=== PATIENT | female | born 1935 | race Caucasian/White ===

== ENCOUNTER 2017-02-21 05:57 | Inpatient (IN) ==
--- NOTE | 2017-02-21 08:21 | CONSULTATION ---
DATE OF CONSULTATION: 02/21/2017 CHIEF COMPLAINT: Hip pain. HISTORY OF PRESENT ILLNESS: Ms. Mahoney is an 81-year-old female who, unfortunately, fell last night when she was going to the bathroom and fell right on her left hip. She presented to [facility] for evaluation. I x-rayed her and saw a hip fracture and then sent her over here for hospitalist admission and surgery. Most of her pain is in the left hip. She was unable to bear weight after the fall, and she denies any loss of consciousness, and she denies any pain anywhere else other than the left hip. PAST MEDICAL HISTORY: Hypertension, diabetes. PAST SURGICAL HISTORY: What sounds like a cervical ablation in the past for cancer and that seemed to resolve the problem. She has not had any problems with that since then. MEDICATIONS: Atorvastatin, aspirin, metformin, hydrochlorothiazide. ALLERGIES: No known drug allergies. SOCIAL HISTORY: She denies any alcohol or tobacco use. FAMILY HISTORY: Negative for any anesthesia-related problems. REVIEW OF SYSTEMS: Positive for this left hip pain. All other systems are essentially negative. PHYSICAL EXAMINATION: Vital signs: Temperature 98.1, pulse 73, blood pressure 157/42, O2 sat 97%. General: Well-developed, well-nourished female in no acute distress. Head/neck: Normocephalic, atraumatic. Lungs: Respirations nonlabored. Cardiovascular: Regular rate. Abdomen: Nondistended. Extremities: Left lower extremity exam shows tenderness to palpation of the left hip, no tenderness to palpation of the knee or ankle. She has good dorsiflexion and plantar flexion of the foot and ankle, 2+ DP pulse, and good sensation to light touch to the toes. No tenderness on palpation of the right lower extremity or bilateral upper extremities. IMAGING: Hip film from outside facility was reviewed, which shows a displaced femoral neck fracture. PLAN: I discussed with Ms. Mahoney and her daughter about surgical intervention, which would be a left hip hemiarthroplasty, went over with them the risks, benefits, and potential complications. Risks include but are not limited to infection, wound healing problems, damage to nerves, arteries, veins, numbness, fracture, implant failure or problems, DVT, and anesthesia-related risks. After discussing these with the patient and her daughter, they both expressed understanding and wished to proceed. She is n.p.o. now. If the hospitalist is okay with her going today, then I will plan on getting this done today. She is n.p.o. until further notice. cc: MD José Miguel Cardenas MD
[2017-02-21] MEDS ORDERED: MORPHINE IV ONE (08:40)
[2017-02-21] MEDS ORDERED: MORPHINE IV PRN ×3 (08:40→15:11)
[2017-02-21] MEDS ORDERED: TYLENOL PO PRN (08:57)
[2017-02-21] MEDS ORDERED: ZOFRAN IV PRN ×2 (08:57→15:11)
--- NOTE | 2017-02-21 08:57 | HISTORY AND PHYSICAL ---
HISTORY OF PRESENT ILLNESS: This is an 81-year-old. She presented last night. She was going to the bathroom, fell, and struck her left hip. Presented to [facility]. Her evaluation and x- ray showed a hip fracture. Sent her here for admission. PAST MEDICAL HISTORY: 1. Hypertension. 2. Diabetes mellitus type 2. SURGICAL HISTORY: 1. She has had a right carotid endarterectomy. 2. Hysterectomy for early cervical cancer, I believe. 3. She had her right collarbone broken but I do not think there was any surgery involved. MEDICATIONS: Atorvastatin, aspirin, metformin, hydrochlorothiazide. ALLERGIES: No known drug allergies. SOCIAL HISTORY: Denies alcohol or tobacco use. FAMILY HISTORY: Negative for anesthesia related problems, or heart, lung, or kidney issues. REVIEW OF SYSTEMS: General: No weight gain or loss. No fever or chills. HEENT: Unremarkable. Respiratory: No increased work of breathing or dyspnea. Cardiovascular: No chest pain or tachy palpitation. GI/: No significant history other than status post hysterectomy. PHYSICAL EXAMINATION: GENERAL: Awake and alert. She is in pain. VITAL SIGNS: Temperature 97.9 degrees, pulse 73, respirations 20, blood pressure 157/51. HEENT: Pupils are equal and round. CVP less than 6 cm. LUNGS: Clear in all lung adamson. CARDIOVASCULAR EXAMINATION: Regular rhythm and rate without murmur or S3. ABDOMEN: Soft. SKIN: Warm and dry. DIAGNOSTIC DATA: X-ray by report, a left hip fracture. ASSESSMENT AND PLAN: 1. Left hip fracture, for surgery. Surgical intervention this morning, I believe, per Dr. Nelson. Probably do a left hip hemiarthroplasty. We will give her some morphine for pain. She seemed to tolerate that in the emergency room. 2. Hypertension. Aware. 3. Diabetes mellitus type 2. We will check patterned sugars. 4. Reviewed her home medications. She is on aspirin 325 mg a day, Plavix 75 mg a day, B12, folic acid tablet 1000 mg daily, Lozol 1.25 mg daily, magnesium oxygen 400 mg a day, Glucophage 500 mg twice a day, omeprazole 20 mg a day, potassium chloride 10 mEq daily, simvastatin 40 mg at bedtime. cc: José Miguel Deshpande MD
[2017-02-21] MEDS: FOLTX PO SCH ×2 (09:16→16:31)
[2017-02-21] MEDS: GLUCOPHAGE PO SCH ×2 (09:16→16:20)
[2017-02-21] MEDS: KLOR-CON PO SCH ×2 (09:17→16:31)
[2017-02-21] MEDS: LOZOL PO SCH ×2 (09:17→16:31)
[2017-02-21] MEDS: MAG-OX PO SCH ×2 (09:17→16:31)
[2017-02-21 10:45] LABS: CALCIUM 9.6 mg/dL (8.8-10.2); POTASSIUM 3.6 mmol/L (3.5-5.1)
[2017-02-21 10:55] LABS: BASO% 0.1 % (0.0-0.8); EOS# 0.01 X1000 (0.0-0.7); EOS% 0.1 % (0.0-10.0); HEMATOCRIT 33.3 % (37.0-47.0); HEMOGLOBIN 11.8 g/dL (12.0-16.0); IMM GRAN# 0.03 X1000 (0.0-0.04); IMM GRAN% 0.2 % (0.0-0.5); LYMPH# 0.95 X1000 (1.2-3.4); LYMPH% 6.3 % (20.5-51.1); MANUAL DIFF NEEDED? NO; MCH 30.5 PG (27-31); MCHC 35.4 g/dL (33-37); MONO# 0.56 X1000 (0.11-0.59); MONO% 3.7 % (1.7-9.3); MPV 9.5 FL (7.4-10.4); NEUT% 89.6 % (42.2-75.2); PLT 347 X1000 (130-400); RBC 3.87 XMIL (4.2-5.4)
[2017-02-21] MEDS ORDERED: KEFZOL 1 GM/D5W 1 GM/50 ML IVPB ONE (13:06)
[2017-02-21] MEDS ORDERED: DIPRIVAN 1% ONE (13:16)
[2017-02-21] MEDS ORDERED: XYLOCAINE-MPF 2% ONE (13:26)
[2017-02-21] MEDS ORDERED: ZOFRAN ONE (13:26)
[2017-02-21] MEDS ORDERED: OFIRMEV 1000 MG/ISOTONIC SOLN 1,000 MG/100 ML BOTTLE ONE (13:26)
[2017-02-21] MEDS ORDERED: MORPHINE ONE (13:39)
[2017-02-21] MEDS ORDERED: HALDOL IV PRN (15:11)
[2017-02-21] MEDS ORDERED: MILK OF MAGNESIA PO PRN (15:11)
[2017-02-21] MEDS ORDERED: OXY IR PO PRN (15:11)
[2017-02-21] MEDS ORDERED: NS 1,000 ML ONE (15:21)
--- NOTE | 2017-02-21 15:34 | OPERATIVE NOTE ---
PROCEDURE DATE: 02/21/2017 PREOPERATIVE DIAGNOSES: Left femoral neck fracture, displaced. POSTOPERATIVE DIAGNOSIS: Left femoral neck fracture, displaced. PROCEDURE: Left hip hemiarthroplasty. SURGEON: Dr. Vincent Nelson. TRACTOR MECHANIC HELPER: None. ANESTHESIA: General with LMA. ESTIMATED BLOOD LOSS: About 200 mL. IMPLANTS: DePuy Corail stem size 11 with a 47 head. DISPOSITION: PACU hemodynamically stable. INDICATION FOR PROCEDURE: Ms. Mahoney is an 81-year-old female, who fell during the middle of the night last night right onto his left hip. She presented to the emergency department with hip pain. She was diagnosed with hip fracture and admitted per the hospitalist service. She was worked up, was made n.p.o. I discussed with her operative intervention. I went over with her the procedure, risks, benefits, potential complications, and she expressed understanding and wished to proceed. DESCRIPTION OF PROCEDURE: Ms. Mahoney was identified in the holding area. The left hip was marked as correct surgical site. She was then wheeled to the operating room, placed supine on the operating table. All bony prominences well padded. She was induced under general anesthesia. LMA was placed. She was then flipped to the right lateral decubitus position. Axillary roll was placed. Pegboard was used to hold her in place and all bony prominences were again checked and well padded. Left lower extremity was then prepped with ChloraPrep and draped in normal sterile fashion. Surgical pause was performed. We identified the correct patient, correct side, and the correct procedure. Preop antibiotics were given. We started with a posterior approach to the hip and dissection was carried down. I went through the deep fascia layer. Found our short external rotators. Found our piriformis. I was able to release that off and tag it. I then came down on the capsule. I then T'd the capsule and exposed the fracture. I then made a fresh neck cut there and got that bone out and then used a corkscrew and got the head out. Sized it to a size 47. I trialed that in the acetabulum and that fit really well. We then irrigated everything copiously with normal saline. I got any loose bone shards out. The neck cut looked really good at this point. I then used a Zhenai cutter and lateralized where my starting point would be. Canal finer and then used broaching up to a size 11. A size 11 actually fit really well. Calcar planed it down. We trialed the 11 and it actually fit really well. I then irrigated everything copiously with normal saline. Put a Corail stem size 11 in. Had good anteversion of it and then put the head on and we were able to reduce that down and it actually fit really well. Took it through range of motion. Everything was very stable in both extension and flexion, internal and external rotation. I then closed the capsule with 0 Vicryl, 0 Vicryl closed the piriformis back down to the trochanter, and then 0 Vicryl for the deep fascia, 2-0 Vicryl for the subcutaneous, and ruth on the skin. Adaptic, 4x4s, and island dressing was then placed. The patient was then wheeled from general anesthesia, moved to her own bed and taken to the PACU in stable condition. Postoperatively, patient will be weight bear as tolerated left lower extremity and I will see her in the morning. cc: MD José Miguel Cardenas MD
[2017-02-21] MEDS: NS 1,000 ML IV SCH (15:40)
[2017-02-21] MEDS: TYLENOL PO SCH ×2 (16:29→23:22)
--- NOTE | 2017-02-21 16:55 | Diag Imaging Result Doc PS360 ---
EXAM: PELVIS INDICATION: postop TECHNIQUE: One view COMPARISON: None. FINDINGS: There has been a recent left hip arthroplasty. The arthroplasty hardware is in expected position. There is no evidence of periprosthetic fracture. Skin ruth are identified lateral to the hip and there is postsurgical subcutaneous gas. IMPRESSION: Satisfactory postoperative left hip. Electronically signed by Martinez Suresh 02/21/2017 4:52 PM
[2017-02-21] MEDS: COLACE PO SCH (20:09)
[2017-02-21] MEDS: PERIDEX MT SCH (20:10)
[2017-02-21] MEDS: ZOCOR PO SCH (22:16)
[2017-02-21] MEDS: KEFZOL 1 GM/D5W 1 GM/50 ML IVPB IV SCH (23:22)
[2017-02-22] MEDS: NS 1,000 ML IV SCH (04:27)
[2017-02-22] MEDS: LOVENOX SUBQ SCH (05:40)
[2017-02-22] MEDS: KEFZOL 1 GM/D5W 1 GM/50 ML IVPB IV SCH ×2 (05:40→14:18)
[2017-02-22 05:55] LABS: MANUAL DIFF NEEDED? NO
[2017-02-22 06:04] LABS: BASO% 0.2 % (0.0-0.8); EOS# 0.04 X1000 (0.0-0.7); EOS% 0.4 % (0.0-10.0); HEMATOCRIT 27.1 % (37.0-47.0); HEMOGLOBIN 9.2 g/dL (12.0-16.0); LYMPH# 1.33 X1000 (1.2-3.4); LYMPH% 14.3 % (20.5-51.1); MCH 30.2 PG (27-31); MCHC 33.9 g/dL (33-37); MCV 88.9 FL (81-99); MONO% 4.3 % (1.7-9.3); MPV 9.6 FL (7.4-10.4); NEUT% 80.8 % (42.2-75.2); PLT 280 X1000 (130-400); RBC 3.05 XMIL (4.2-5.4)
[2017-02-22 06:24] LABS: ALBUMIN 3.7 g/dL (3.5-5.0); CALCIUM 7.9 mg/dL (8.8-10.2); MAGNESIUM 1.3 mg/dL (1.5-2.7); POTASSIUM 3.4 mmol/L (3.5-5.1); TOTAL BILIRUBIN 0.32 mg/dL (0.20-1.00); TOTAL PROTEIN 5.6 g/dL (6.3-8.3)
[2017-02-22] MEDS: TYLENOL PO SCH ×4 (07:08→22:27)
[2017-02-22] MEDS: PRILOSEC PO SCH (07:08)
--- NOTE | 2017-02-22 08:17 | PROGRESS NOTE ---
DATE: 02/22/2017 SUBJECTIVE: Ms. Mahoney is lying in bed this morning. She feels better after surgery and is not hurting as much. OBJECTIVE: Left Lower Extremity Examination: Dressing is clean, dry, and intact. She has good dorsiflexion and plantarflexion of the foot and ankle. There is 2+ DP pulse. She has good sensation to light touch to the toes. Not a lot of swelling seen at the hip. ASSESSMENT: Status post left hip hemiarthroplasty. PLAN: Postoperative x-ray looked very good in the recovery room so I am okay with Ms. Mahoney being weightbearing as tolerated to the left lower extremity. She will begin to work with therapy, getting up and moving. I want her getting to the bedside chair for all meals and we will look for getting social science instructor involved for rehab placement starting tomorrow. cc: MD José Miguel Cardenas MD
[2017-02-22] MEDS: GLUCOPHAGE PO SCH ×2 (08:52→16:29)
[2017-02-22] MEDS: MAG-OX PO SCH ×3 (08:52→20:00)
[2017-02-22] MEDS: PERIDEX MT SCH ×2 (08:52→20:00)
[2017-02-22] MEDS: FOLTX PO SCH (08:52)
[2017-02-22] MEDS: LOZOL PO SCH (08:53)
[2017-02-22] MEDS: KLOR-CON PO SCH ×3 (08:53→20:00)
[2017-02-22] MEDS: FERROUS SULFATE PO SCH (08:53)
[2017-02-22] MEDS ORDERED: ATIVAN PO PRN (10:06)
--- NOTE | 2017-02-22 13:28 | PROGRESS NOTE ---
DATE: 02/22/2017 SUBJECTIVE: Ms. Mahoney has done very well. Had a good night. Pain control has been good. Breathing comfortably. She has been eating. Family gave me some grim news; her son had yesterday and they needed to tell her the news and they were concerned about the effect of that, but I did visit her after. She is of course broken hearted, seems to be handling the information appropriately. OBJECTIVE: Vital Signs: Temperature 98 degrees, pulse 78, respirations 18, blood pressure 111/32. HEENT: Pupils are equal, round. Lungs: Clear in all lung adamson. Cardiovascular: Regular rhythm and rate without murmur or S3. Abdomen: Soft. Skin: Warm and dry. Urine output is 2200 mL. LABORATORY STUDIES: White count 9280, hematocrit 27, platelet count 280,000. Sodium 127, potassium 3.4, chloride 84, BUN 9, creatinine 0.9. Blood sugars 144, 86, 187. ASSESSMENT AND PLAN: 1. Status post left hip hemiarthroplasty. Doing well with recovery. Continue physical therapy. Aim is to go to rehab. 2. Hypertension. Blood pressure will continue to watch. Doing well. 3. Diabetes mellitus type 2. Sugars under good control. 4. I will let her have a little Ativan for anxiety if needed. Reviewed orders. I do not see any change. Zocor 40 mg a day, potassium chloride ER 10 mEq a day. She is on oxycodone for pain 5 mg q.3 h. She is on omeprazole 20 mg daily, metformin 500 mg b.i.d., magnesium oxide 400 mg once a day, Lozol 1.25 mg daily, ferrous sulfate 325 mg a day. She is getting normal saline at 83 mL an hour. cc: José Miguel Deshpande MD
[2017-02-22] MEDS: COLACE PO SCH (20:00)
[2017-02-22] MEDS: ZOCOR PO SCH (20:00)
[2017-02-23 05:48] LABS: HEMATOCRIT 25.5 % (37.0-47.0); HEMOGLOBIN 8.5 g/dL (12.0-16.0)
[2017-02-23] MEDS: LOVENOX SUBQ SCH (06:03)
[2017-02-23] MEDS: TYLENOL PO SCH ×4 (06:03→23:00)
[2017-02-23] MEDS: PRILOSEC PO SCH (06:03)
[2017-02-23] MEDS: LOZOL PO SCH (09:02)
[2017-02-23] MEDS: FERROUS SULFATE PO SCH (09:02)
[2017-02-23] MEDS: PERIDEX MT SCH ×2 (09:02→20:44)
[2017-02-23] MEDS: KLOR-CON PO SCH ×3 (09:03→20:45)
[2017-02-23] MEDS: MAG-OX PO SCH ×2 (09:03→20:46)
[2017-02-23] MEDS: FOLTX PO SCH (09:03)
[2017-02-23] MEDS: GLUCOPHAGE PO SCH ×2 (09:03→16:11)
--- NOTE | 2017-02-23 13:16 | PROGRESS NOTE ---
DATE: 02/23/2017 SUBJECTIVE DATA: Ms. Mahoney is lying in bed comfortably this morning. She states that she is not having much pain. OBJECTIVE DATA: Left lower extremity exam: Dressing is clean, dry, and intact. She has good dorsiflexion and plantar flexion of the foot and ankle. She can raise her leg some. There is a 2+ pedal pulse. She has good sensation to light touch to the toes. Not a whole lot of swelling noted. ASSESSMENT: Status post left hip hemiarthroplasty. PLAN: Ms. Mahoney can begin weightbearing as much as tolerated to the left lower extremity. We really want her up to the chair for all meals and beginning mobilization. The plan will be to get her to rehab. From our standpoint, we are good with discharge whenever she is medically able. Dictated by JANIS Quintero for Vincent Nelson MD cc: JANIS Quintero MD Allen J. Schmidt, MD
--- NOTE | 2017-02-23 15:14 | PROGRESS NOTE ---
DATE: 02/23/2017 SUBJECTIVE: Ms. Mahoney suffered a hip fracture. They are not really sure. She was admitted on 02/21. She was going to the bathroom. Except for the hip fracture she has done well. Open reduction and internal fixation. She is ready go to rehab. Blood sugars have done well. PHYSICAL EXAMINATION: Vital Signs: Temperature 98.1 degrees, pulse 100, respirations 16, blood pressure 131/39. Eyes: Pupils equal. CVP less than 6 cm. Lungs: Clear in all lung adamson. Cardiovascular: Regular rate without murmur or S3. Urine output was 1600 mL. LABORATORY: Hematocrit stable at 25. Blood sugars 167, 184, 240. ASSESSMENT AND PLAN: 1. Status post left hip hemiarthroplasty. Doing well. Continue physical therapy. 2. Hypertension. 3. Diabetes mellitus type 2. Sugars under good control. 4. Lastly, acute blood loss anemia. Stable following surgery. She is doing well. She is on iron. I suspect they will want to put her on a blood thinner. cc: José Miguel Deshpande MD
[2017-02-23] MEDS: NS 1,000 ML IV SCH (16:10)
[2017-02-23] MEDS: COLACE PO SCH (20:46)
[2017-02-23] MEDS: ZOCOR PO SCH (20:46)
[2017-02-24] MEDS: PRILOSEC PO SCH (06:22)
[2017-02-24] MEDS: LOVENOX SUBQ SCH (06:22)
[2017-02-24] MEDS: TYLENOL PO SCH ×2 (06:23→16:22)
--- NOTE | 2017-02-24 08:20 | PROGRESS NOTE ---
DATE: 02/24/2017 SUBJECTIVE: Ms. Mahoney is lying in bed this morning. She looks really good this morning. Not really complaining of a lot of pain. She was up to chair sitting for a while yesterday. OBJECTIVE: Left lower extremity: Dressing is clean, dry, and intact. She is neurovascularly intact left lower extremity. ASSESSMENT: Status post left hip hemiarthroplasty. PLAN: I think Ms. Mahoney is doing great. member services representative seen is trying get everything set up for rehab in [place]. I am okay with her being discharged from orthopedic standpoint. She is weight bear as tolerated left lower extremity, and I will need to see her in my clinic in about 2 weeks. cc: MD José Miguel Cardenas MD
[2017-02-24] MEDS: FOLTX PO SCH (09:19)
[2017-02-24] MEDS: MAG-OX PO SCH (09:19)
[2017-02-24] MEDS: KLOR-CON PO SCH ×2 (09:19)
[2017-02-24] MEDS: PERIDEX MT SCH (09:19)
[2017-02-24] MEDS: GLUCOPHAGE PO SCH ×2 (09:19→16:22)
[2017-02-24] MEDS: LOZOL PO SCH (09:20)
[2017-02-24] MEDS: FERROUS SULFATE PO SCH (09:20)
--- NOTE | 2017-02-24 13:51 | DISCHARGE SUMMARY ---
ADMISSION DATE: 02/21/2017 DISCHARGE DATE: 02/24/2017 CONSULTATION: Dr. Vincent Nelson with Orthopedics. PERTINENT PROCEDURES: 1. Left hip hemiarthroplasty performed by Dr. Vincent Nelson. 2. Hip-pelvis x-ray showed satisfactory postop left hip. DISCHARGE DIAGNOSES: 1. Left femoral neck fracture displaced status post left hip hemiarthroplasty. The patient is being discharged to [facility] in [place]. She is to be weightbearing as tolerated on her left lower extremity. Will need to follow up with Dr. Nelson in 2 weeks. 2. Hypertension. Continue home medications. 3. Diabetes mellitus type 2. Controlled. HOSPITAL COURSE: Ms. Mahoney is an 81-year-old female who carries a past medical history of type 2 diabetes and hypertension. She presented to the ED after going to the bathroom and fell and struck her left hip. She was at [facility]. Her evaluation and x-ray showed a hip fracture. She was sent to [facility] and evaluated by Dr. Nelson. She underwent a left hip hemiarthroplasty. She has been weightbearing as tolerated on her left lower extremity. She has been getting up and around with physical therapy. Naphthalene Operator was consulted for rehab placement. She has been accepted to [facility] in [place]. She is stable for discharge there today. VITAL SIGNS: Temperature is 98 degrees, heart rate 94, respirations 18, blood pressure 138/42, O2 is 100% on room air. DISCHARGE DIET: Diabetic. DISCHARGE MEDICATIONS: As per Dr. De Jesus. Please see MAR. FOLLOWUP: Ms Mahoney is being discharged to [facility] in [place]. She will follow up with Dr. Nelson. She is to be weightbearing as tolerated on that left lower extremity. She can return to the ED for any worsening of symptoms. Dictated by JANIS Lira for Jacobo De Jesus MD cc: Jacobo De Jesus MD
--- NOTE | 2017-02-24 14:56 | Diag Imaging Result Doc PS360 ---
CHEST-PORTABLE - 02/24/2017 INDICATION: rehab placement TECHNIQUE: COMPARISON: None FINDINGS: There is a calcified granuloma near the left hilum. The lungs are normally expanded and clear. Heart size and mediastinal contours are normal. No pneumothorax or pleural effusion. IMPRESSION: Negative exam. Electronically signed by Baron Sellers 02/24/2017 2:53 PM
[2017-02-24 16:28] VITALS: BP 164/50
[2017-02-25] MEDS ORDERED: XARELTO PO SCH (06:00)
--- NOTE | 2017-02-25 07:06 | DISCHARGE SUMMARY ---
ADMISSION DATE: 02/21/2017 DISCHARGE DATE: 02/24/2017 ADDENDUM: The patient was seen and examined by me [id number]. All the lab work, images, and vital signs were reviewed. This patient is in a stable medical condition. She was complaining of mild left hip pain, but this patient had a left hip hemiarthroplasty performed by Dr. Vincent Nelson. Family members at the bedside. I had a large conversation with this patient about anticoagulation. She will be on Xarelto for 35 days but apparently she was taking aspirin and Plavix, but after talking to this patient, she realized that she was only on aspirin and not Plavix. She needs rehabilitation so this is why we will discharge this patient to [facility] in [place]. This patient agreed with the plan, as well as the family. At the moment of discharge, this patient was completely alert and oriented x3. She was tolerating p.o. and getting physical therapy. cc: Jacobo De Jesus MD
== END 2017-02-24 16:51 ==
LOC: DIRADM 05:57 → SUATTDRO 05:57 → 4N 06:31
PROVIDERS: ADMIT Internal Medicine; ATTEND Orthopaedic Surgery